=== PATIENT | female | born 1970 | race Caucasian/White ===

== ENCOUNTER 2018-03-18 09:15 | Emergency (ER) | payer SELFPAY ==
--- NOTE | 2018-03-18 10:00 | EDPHY ---
H & P Time Seen by Provider: 03/18/18 09:27 HPI/ROS: HPI Cat bite to right hand. 47-year-old female by private vehicle. She was bitten by her domestic cat yesterday afternoon in the right hand. She was bitten at the radial aspect base of the proximal phalanx 2nd digit and the other puncture site is the ulnar base of the proximal phalanx 2nd digit. He reports that she had some redness around the wound last night but then woke up this morning with swelling involving the base of that finger extending into the dorsum of her hand with some red streaking over the dorsal aspect of the distal wrist. Her CT has been vaccinated for rabies. The animal is otherwise healthy and has been in her position for some time. She is right-hand dominant. She has not had a fever. She denies any other complaints. ROS: Constitutional: No fever, no chills. No weakness. Musculoskeletal: As above. Skin: As above. Neurological: No focal weakness or altered sensation. Past medical history: Right wrist fracture that did not heal properly. She is allergic to penicillins and fluoroquinolones. She has had Keflex in the past without reaction. Social history: Here by herself. No alcohol. Nonsmoker. Physical Exam: General Appearance: Alert, no distress. This patient is responding to questions appropriately and in full sentences. This patient appears well- hydrated and well-nourished. Eyes: Pupils equal and round no pallor or injection. No lid edema, erythema or injection. Right hand and upper extremity exam: She has a small puncture wound at the base of the proximal phalanx, radial aspect 2nd digit she also has another puncture wound at the base of the proximal phalanx ulnar aspect radial digit. There is diffuse swelling through the proximal and mid phalanx extending into the dorsal aspect metacarpal joint and radial aspect of the dorsum of the hand. She does have some faint erythematous streaking involving the dorsal aspect of the distal wrist. No axillary lymphadenopathy. The right hand and right upper extremity are neurovascularly intact. No sausage digit on inspection of the right 2nd finger. No significant tenderness on palpation of the flexor surface of that digit she is able to flex and extend it without significant pain. The 2nd finger and hand are neurovascularly intact. Neurological: Motor sensory function is grossly intact. Cranial nerves are normal. Gait is normal. Skin: Warm and dry, no rashes except noted above. Extremities are symmetrical. All joints range without pain or impingement except noted. Psychiatric: No agitation. No depression. Database: EKG: Imaging: Right hand x-ray series: No radiopaque foreign body. No evidence of fracture, subluxation, dislocation. Interpreted by me. Procedures: Emergency department course: Triage vital signs reviewed and are within normal limits. Results of x-rays discussed with the patient. Infection involving her right hand is concerning. However, I feel that it is early in its course and oral antibiotics at this time are appropriate. Given her allergy to penicillins and no prior issue with taking cephalosporin she will be treated with cefuroxime 500 mg and Flagyl 500 mg in the emergency department. She will then be prescribed these medications for a 10 day course. She will follow up with her primary care physician tomorrow and [place] for re-evaluation. I discussed my concern of the infection involving her hand and the seriousness of it. Strict return to emergency department precautions were reviewed with her thoroughly. All of her questions were answered. She was discharged in good condition. Prior to discharge, the patient stated that she gets sick to her stomach on Flagyl. She will be given clindamycin orally instead to cover for anaerobes. Differential Diagnosis: The differential diagnosis on this patient includes but is not limited to cat bite right hand, cellulitis of right hand. Retained foreign body and cat bite wound, significant neurovascular injury, flexor tenosynovitis unlikely. This represents a partial list of diagnoses considered. These considerations are based on history, physical exam, past history, reassessment and diagnostic testing. Smoking Status: Current every day smoker Constitutional: Initial Vital Signs Temperature (C) 37.4 C 03/18/18 09:18 Heart Rate 90 03/18/18 09:18 Respiratory Rate 20 03/18/18 09:18 Blood Pressure 101/79 03/18/18 09:18 O2 Sat (%) 94 03/18/18 09:18 O2 Delivery Mode Room Air Allergies/Adverse Reactions: gabapentin Allergy (Verified 03/18/18 09:23) metronidazole [From Flagyl] Allergy (Verified 03/18/18 10:57) Penicillins Allergy (Verified 03/18/18 09:23) Home Medications: Medication Instructions Recorded Cefuroxime Axetil [Cefuroxime] 500 mg PO BID #20 tablet 03/18/18 Clindamycin HCl [Clindamycin] 300 mg PO TID #30 cap 03/18/18 Gabapentin 03/18/18 Meloxicam 03/18/18 metroNIDAZOLE [Flagyl 500 mg (*)] 500 mg PO TID #30 tab 03/18/18 Medical Decision Making - Data Points Medications Given: Discontinued Medications Cefuroxime Axetil (Ceftin) 500 mg PO ONCE ONE PRN Reason: Protocol Stop: 03/18/18 10:31 Last Admin: 03/18/18 11:07 Dose: 500 mg Metronidazole (Flagyl) 500 mg PO EDNOW ONE PRN Reason: Protocol Stop: 03/18/18 10:31 Last Admin: 03/18/18 10:57 Dose: Not Given Departure - Departure Disposition: Home, Routine, Self-Care Clinical Impression: Cat bite of right hand, Cellulitis of right hand Condition: Good Instructions: Animal Bite (ED), Cellulitis (ED) Additional Instructions: Read and follow provided instructions. Follow-up with your primary care physician in [place] tomorrow for re- evaluation. It is very important you do this. Take antibiotics as prescribed through entire course of treatment. Ibuprofen dosin mg every 6 hours with meals for the next 3 days only. Take only as needed for pain. Return to the emergency department immediately as discussed for worsening swelling, pain, redness, fever or other serious concerns. Referrals: NONE *PRIMARY CARE P,. [Primary Care Provider] - As per Instructions Prescriptions: Cefuroxime Axetil [Cefuroxime] 500 mg PO BID #20 tablet Clindamycin HCl [Clindamycin] 300 mg PO TID #30 cap metroNIDAZOLE [Flagyl 500 mg (*)] 500 mg PO TID #30 tab
[2018-03-18] MEDS ORDERED: CEFUROXIME AXETIL 250 MG TAB PO ONE (10:30)
[2018-03-18] MEDS ORDERED: metroNIDAZOLE 500 MG TAB PO ONE (10:30)
[2018-03-18 11:04] VITALS: BP 126/96
== END 2018-03-18 11:10 | disposition home or self-care (01) ==
DX: S61.451A Open bite of right hand, initial encounter (principal); L03.113 Cellulitis of right upper limb; W55.01XA Bitten by cat, initial encounter